=== PATIENT | female | born 1935 | race Caucasian/White ===

== ENCOUNTER 2020-12-27 23:44 | Emergency (ER) | payer MEDICARE, OTHER ==
[~2020-12-27 23:44] MED LIST: AMARYL1 MG PO; CARDIZEM LA360 MG PO; FLUOXETINE HCL10 M1 PO; HCTZ25 MG PO; KLOR-CON 1010 MEQ PO; LASIX20 MG PO; LIPITOR20 MG PO; LOSARTAN POTAS100 MG PO; NORVASC2.5 MG PO; PRILOSEC20 MG PO
[2020-12-28 00:32] LABS: BASOPHIL 0.6 % (0-2); EOSINOPHIL 3.7 % (0-7); HGB 11.5 g/dl (12.5-16.0); LYMPHOCYTE 37.3 % (15-48); MCH 28.3 pg (25.0-31.0); MCHC 32.9 g/dL (32.0-36.0); MONOCYTE 9.5 % (0-12); MPV 9.9 fL (6.0-9.5); NEUTROPHIL 48.5 % (41-80); NRBC 0; PLT 267 K/uL (150-400); RBC 4.07 M/uL (4.20-5.40); RDW 12.3 % (11.5-14.0); WBC 10.7 K/uL (4.0-10.5)
[2020-12-28 00:45] LABS: ALBUMIN 4.2 g/dL (3.4-5.0); BILIRUBIN - TOTAL 0.2 mg/dL (0.2-1.0); CREATININE 1.22 mg/dL (0.51-0.95); GLOBULIN (CALCULATION) 3.3 g/dL; POTASSIUM 3.8 mmol/L (3.5-5.1); TOTAL PROTEIN 7.5 g/dL (6.4-8.2)
[2020-12-28 00:53] LABS: BILIRUBIN NEGATIVE (NEGATIVE); BLOOD NEGATIVE Ery/uL (NEGATIVE); CLARITY CLEAR (CLEAR); COLOR YELLOW (YELLOW); GLUCOSE (U) NORMAL (NORMAL); LEUKOCYTES TRACE Leu/uL (NEGATIVE); NITRITE NEGATIVE (NEGATIVE); PROTEIN NEGATIVE (NEGATIVE); SPECIFIC GRAVITY 1.015 (1.001-1.030); UROBILINOGEN 0.2 mg/dL (0.2-1.0); pH 7.5 (5.0-9.0)
== END 2020-12-28 06:00 | disposition other institution (70) ==
LOC: FER 23:44
PROVIDERS: Emergency Medicine
DX: R42 Dizziness and giddiness (principal); R11.0 Nausea; E11.9 Type 2 diabetes mellitus without complications; Z90.2 Acquired absence of lung [part of]; Z85.118 Personal history of other malignant neoplasm of bronchus and lung; Z79.82 Long term (current) use of aspirin; Z88.2 Allergy status to sulfonamides; Z88.5 Allergy status to narcotic agent
CPT/HCPCS: 36415; 70450; 71045; 80053; 81001; 84484; 85025; 93005; J3490; J7030